=== PATIENT | female | born 1965 | race Caucasian/White ===

== ENCOUNTER 2020-09-01 13:27 | Inpatient (IN) | payer BC ==
[~2020-09-01] VITALS: Ht 157.5 cm; Wt 90.1 kg
--- NOTE | 2020-09-01 13:39 | PHYS DOC ---
General Adult EDM: Chief Complaint: NAUSEA/VOMITING/DIARRHEA HPI: HPI: Patient is a 55-year-old female coming in via EMS for vomiting and diarrhea starting at 13 hours prior to arrival. Patient had pork steaks made by her at home around 2100 yesterday, started vomiting around midnight. Vomiting is nonbloody or bilious but she is unable to say how a time she has vomited. Eventually started having diarrhea as well. Denies any blood or melena. She states she has not been to keep anything down. Denies any sick contacts other than who ate the same meal, fevers, cough. Review of Systems: Review of Systems: All other systems within normal limits except for as noted in the HPI Physical Exam: PE: Constitutional: Well developed, well nourished, mild acute distress, non-toxic appearance. [] HENT: Normocephalic, atraumatic, bilateral external ears normal, nose normal. [] Eyes: PERRLA, conjunctiva normal, no discharge. [] Neck: No rigidity, supple, no stridor. [] Cardiovascular: Regular rate and rhythm, cap refill 1 to 2 seconds [] Lungs & Thorax: Non labored symmetric respirations, no tachypnea or respiratory distress [] Abdomen: Soft, nondistended, left lower extremity tenderness with guarding, no rebound.. Skin: Warm, dry, no erythema, no rash. [] Back: Unremarkable Extremities: No deformities, range of motion grossly intact, no lower extremity edema [] Neurologic: Alert and oriented X 3, no focal deficits noted. [] Psychologic: Affect normal, judgement normal, mood normal. [] EKG: EKG: [] Radiology/Procedures: Radiology/Procedures: [] Heart Score: C/O Chest Pain: No Risk Factors: Risk Factors: DM, Current or recent (<one month) smoker, HTN, HLP, family history of CAD, obesity. Risk Scores: Score 0 - 3: 2.5% MACE over next 6 weeks - Discharge Home Score 4 - 6: 20.3% MACE over next 6 weeks - Admit for Clinical Observation Score 7 - 10: 72.7% MACE over next 6 weeks - Early Invasive Strategies Course & Med Decision Making: Course & Med Decision Making Pertinent Labs and Imaging studies reviewed. (See chart for details) Patient's vital signs normalized after 3 L. Labs suggestive of significant dehydration. Patient still feels weak and is only able to tolerate small amounts of p.o. Will admit for continued hydration and advancing diet as patient will likely bounce back to the emergency department if sent home at this time. [] Dragon Disclaimer: Dragon Disclaimer: This electronic medical record was generated, in whole or in part, using a voice recognition dictation system. Departure Departure: Impression: Primary Impression: ESAU (acute kidney injury) Additional Impressions: Nausea vomiting and diarrhea Dehydration Enteritis Disposition: ADMITTED INPATIENT Admitting Physician: Guerrero Faulkner Condition: STABLE TRIP JONES MD Sep 01, 2020 13:39
[2020-09-01] MEDS ORDERED: IV NORMAL SALINE 1,000ML 1,000 ML IV ONE ×2 (13:45→15:00)
[2020-09-01] MEDS ORDERED: ONDANSETRON PF 4 MG/2 ML VIAL. IVP ONE (13:45)
[2020-09-01] MEDS ORDERED: IOHEXOL 300 MG/ML 75 ML VIAL. IV ONE (13:45)
--- NOTE | 2020-09-01 14:24 | RAD ---
EXAM: CT Abdomen and Pelvis without IV contrast CLINICAL HISTORY: LLQ pain COMPARISON: CT 05/10/2016 TECHNIQUE: Helical CT of the abdomen and pelvis without intravenous contrast. Axial, coronal and sagi ttal reformatted images were generated. PQRS compliance statement - One or more of the following individualized dose reduction techniques wer e utilized for this study: 1. Automated exposure control 2. Adjustment of the mA and/or kV according to patient size 3. Use of iterative reconstruction technique FINDINGS: Lack of intravenous contrast limits evaluation of solid organs, vasculature, and lymph nodes. Lower chest: Linear opacities lower lobes and lingula likely scarring/atelectasis. Abdomen and Pelvis: Spleen and adrenal glands are unremarkable. Accounting for postcholecystectomy change, no biliary stormy gabriella dilatation. Pancreas is grossly unremarkable. No focal renal lesion. No hydronephrosis. No hydrou reter. Liver is enlarged measuring 19.7 cm in length. Mild colonic stool content. Focal dilation or diverticulum arising from the sigmoid colon measures 5 .6 cm. An adjacent small bowel loop measures 3.1 cm in diameter with trace infiltration, with smooth transition proximal and distal to normal caliber. Changes of partial gastrectomy are seen. No abdominal or pelvic ascites. No abdominal or pelvic lymphadenopathy. Small fat-containing periumbilical hernia. The IVC is mostly collapsed, may be seen with dehydration. Aorta is normal in caliber. Bones: Symphysis pubis degenerative changes are seen. No aggressive osseous lesion is seen. Degenerative qamar nges of the spine. IMPRESSION: 1. Borderline dilation of a short segment of small bowel in the left lower quadrant with trace infil tration likely enteritis. No definite bowel obstruction. 2. Focal diverticulum or anastomotic surgical pouch arising from the sigmoid colon measures 5.6 cm, chronic in appearance, mildly more prominent compared to 1 5 sent. 3. Mild colonic stool content. 4. Hepatomegaly. Electronically signed by: Min Valladares MD (09/01/2020 2:21 PM) [facility]
[2020-09-01 16:04] LABS: BASO % 0 % (0-3); EOS # 0.1 x10^3/uL (0.0-0.7); EOS % 1 % (0-3); HEMATOCRIT 42.3 % (36.0-47.0); LYMPH # 0.5 x10^3/uL (1.0-4.8); LYMPH % 7 % (24-48); MEAN CORPUSCULAR HEMOGLOBIN 30 pg (25-35); MEAN CORPUSCULAR HGB CONC 33 g/dL (31-37); MEAN CORPUSCULAR VOLUME 92 fL (79-100); MONO # 0.1 x10^3/uL (0.0-1.1); MONO % 1 % (0-9); NEUT # 6.9 x10^3uL (1.8-7.7); NEUT % 91 % (31-73); PLATELET COUNT 171 x10^3/uL (140-400); RED BLOOD COUNT 4.61 x10^6/uL (3.50-5.40); RED CELL DISTRIBUTION WIDTH 14.9 % (11.5-14.5); WHITE BLOOD COUNT 7.6 x10^3/uL (4.0-11.0)
[2020-09-01 16:07] LABS: CALCIUM 7.4 mg/dL (8.5-10.1); CREATININE 1.6 mg/dL (0.6-1.0); GFR 33.5; POTASSIUM 3.6 mmol/L (3.5-5.1)
[2020-09-01 16:13] LABS: ALBUMIN 2.6 g/dL (3.4-5.0); TOTAL BILIRUBIN 1.4 mg/dL (0.2-1.0); TOTAL PROTEIN 5.3 g/dL (6.4-8.2)
[2020-09-01] MEDS ORDERED: ONDANSETRON PF 4 MG/2 ML VIAL. IVP PRN (17:15)
[2020-09-01 20:23] VITALS: BP 102/71
[2020-09-01] MEDS: IV NORMAL SALINE 1,000ML 1,000 ML IV SCH (21:27)
[2020-09-02 00:38] VITALS: BP 114/76
[2020-09-02 05:44] VITALS: BP 90/67
[2020-09-02 06:30] LABS: BASO % 1 % (0-3); EOS % 1 % (0-3); HEMATOCRIT 41.2 % (36.0-47.0); HEMOGLOBIN 13.7 g/dL (12.0-15.5); LYMPH # 0.4 x10^3/uL (1.0-4.8); LYMPH % 9 % (24-48); MEAN CORPUSCULAR HEMOGLOBIN 31 pg (25-35); MEAN CORPUSCULAR HGB CONC 33 g/dL (31-37); MEAN CORPUSCULAR VOLUME 92 fL (79-100); MONO # 0.1 x10^3/uL (0.0-1.1); MONO % 2 % (0-9); NEUT # 4.1 x10^3uL (1.8-7.7); NEUT % 88 % (31-73); PLATELET COUNT 155 x10^3/uL (140-400); RED BLOOD COUNT 4.47 x10^6/uL (3.50-5.40); RED CELL DISTRIBUTION WIDTH 14.9 % (11.5-14.5); WHITE BLOOD COUNT 4.7 x10^3/uL (4.0-11.0)
[2020-09-02 06:34] LABS: CALCIUM 7.8 mg/dL (8.5-10.1); GFR 57.6; POTASSIUM 3.3 mmol/L (3.5-5.1)
[2020-09-02] MEDS: IV NORMAL SALINE 1,000ML 1,000 ML IV SCH (07:49)
[2020-09-02 08:19] VITALS: BP 117/76
[2020-09-02 10:46] VITALS: BP 119/81
[2020-09-02 12:38] VITALS: BP 109/73
--- NOTE | 2020-09-02 12:42 | HP ---
ADMIT DATE: 09/01/2020 ATTENDING PHYSICIAN: Dr. Faulkner. CHIEF COMPLAINT: Nausea, vomiting, diarrhea. HISTORY OF PRESENT ILLNESS: The patient is a pleasant 55-year-old female admitted to the ED with a 1-day history of nausea, vomiting, and diarrhea, very tired. She is weak. She has been taking care of a 1-year-old grandson who also has symptoms. The grandson caught a virus from his daycare. Both she and her is ill, has improved. There is no COVID exposure. She is on blood pressure medication. She was very weak and tired and clinically dehydrated. She is admitted for further treatment and evaluation. PAST MEDICAL HISTORY: Significant for gastric bypass surgery, fibromyalgia, and essential hypertension. CURRENT MEDICATIONS: Include amlodipine, lisinopril, Cymbalta and Lyrica. ALLERGIES: She has no recorded drug allergies. SOCIAL HISTORY: She is a nonsmoker, nondrinker. She is currently unemployed. She has been active, taking care of a 1-year-old grandson. No recent travel exposure, fevers. REVIEW OF SYSTEMS: All other systems reviewed and turned to be negative. PHYSICAL EXAMINATION: GENERAL: When I saw her, this is a pleasant, middle-aged female. VITAL SIGNS: Showed a blood pressure in the ED of 90/67, temperature 100.7 degrees Fahrenheit, oxygen saturation 94% on room air, pulse is 76 and normal. HEENT: Head is without trauma. Pupils are reactive. Sclerae nonicteric. Oropharynx a bit dry. NECK: Supple. No stridor. LUNGS: Clear. CARDIOVASCULAR: Regular heart tones. No gallop. ABDOMEN: Soft. EXTREMITIES: Without edema. NEUROLOGIC: Focally intact. Speech is fluent. LABORATORIES AND X-RAY STUDIES: CT of the abdomen showed postoperative changes. She has had a previous colon resection with anastomosis, diverticulum without diverticulitis. No obstruction identified. Her hemoglobin is 14.0 grams. White count 7600. Electrolytes, creatinine is 1.6 mg/dL, BUN 51. Electrolytes within normal range. Transaminases are normal. ASSESSMENT: 1. A 55-year-old female with self-limiting viral gastroenteritis. 2. Dehydration. 3. Mild acute renal failure with elevation of BUN and creatinine due to fluid losses. 4. Fibromyalgia. 5. Previous colon resection with any obstruction at this time. 6. Essential hypertension, now hypotensive. PLAN: 1. Observation status. 2. Gentle IV hydration. 3. Symptomatic relief. 4. Nausea control. 5. Follow up chemistries in the morning. 6. Hold antihypertensives. RANDY/JEFFERY DR: Katie TID: [id number] CC: Hallie Patton
--- NOTE | 2020-09-02 20:30 | DS ---
DATE OF DISCHARGE: 09/02/2020 ATTENDING PHYSICIAN: Dr. Faulkner. FINAL DISCHARGE DIAGNOSES: 1. Self-limiting viral gastroenteritis. 2. Dehydration, rehydrated. 3. Essential hypertension, now normotensive. 4. Mild acute renal failure, resolved with hydration. 5. History of fibromyalgia. 6. Previous colon resection. 7. Previous gastric bypass. HISTORY OF PRESENT ILLNESS: The patient is a very pleasant 55-year-old female who got sick along with her . She caught a virus from her 1-year-old grandson they care for at home. He had caught it from daycare. She had nausea, vomiting, diarrhea before coming in. PHYSICAL EXAMINATION: Please see the dictated note. PERTINENT LABORATORY AND X-RAY STUDIES: Creatinine on admission was 1.6 mg/dL, BUN 52. With gentle IV hydration, it came back to normal at 1.0 and 32 mg/dL respectively. CT of the abdomen showed no specific pathology. Postoperative changes of the colo, identified. No obstruction, no inflammatory bowel disease. COURSE IN THE HOSPITAL: The patient was admitted. She was started on gentle IV hydration. Appetite was still poor. She was able to eat some crackers and nausea resolved. Diarrhea, resolved. I offered to keep her another day for hydration. She wanted to go home. I felt this is reasonable. I wrote her a script for Zofran 4 mg p.o. every 6 hours p.r.n. nausea. For now, I have asked her to hold her lisinopril and amlodipine. She should continue her Cymbalta and Lyrica doses unchanged. She is going to record her daily BP readings for several weeks before taking it to see Dr. Patton to decide whether she needs continued antihypertensive therapy. I encouraged a bland diet and oral Gatorade for the next 48 hours. The patient was then discharged from our hospital in stable condition with explicit instructions and followup care. ZOE DR: Katie TID: [id number] CC: Dr. Hallie Patton
== END 2020-09-02 12:45 | disposition home or self-care (01) | DRG 392 ==
LOC: ER 13:27 → 1 SOUTH 17:11
PROVIDERS: ADMIT Hospitalist; ATTEND Hospitalist
DX: A08.4 Viral intestinal infection, unspecified (principal); N17.9 Acute kidney failure, unspecified; E86.0 Dehydration; I10 Essential (primary) hypertension; M79.7 Fibromyalgia; Z56.0 Unemployment, unspecified; Z90.49 Acquired absence of other specified parts of digestive tract; Z98.84 Bariatric surgery status
CPT/HCPCS: 36415; 74176; 80048; 80053; 83605; 83690; 85025; 96361; 96374; 96375; J2405; J3010; 99285-25; J7030

== ENCOUNTER → 2021-07-03 | Outpatient (CLI) | payer BC ==
[2020-11-08 11:34] VITALS: BP 113/73
[~2021-07-03] MED LIST: AMLO-187 PO; BUPR150T21 PO; CHLO25TA9 PO; DULO60CA7 PO; LEVO125T77 PO; LISI40TA6 PO; NALT50TA PO; PREG75CA PO; TIZA-75 PO
--- NOTE | 2021-07-03 11:02 | RAD ---
Examination: Ultrasound abdomen complete HISTORY: History of elevated liver enzymes COMPARISON: None available FINDINGS: The liver length is 13.7 cm. Mild increased echogenicity identified in the liver likely hepatic steat osis. The common bile duct measures 5.6 mm in transverse dimension. Changes of cholecystectomy change s. The pancreas, IVC, aorta are not well-visualized due to bowel gas. The right kidney measures 9.8 x 4.5 x 4.0 cm. IMPRESSION: 1. Mild hepatic steatosis. 2. Changes of cholecystectomy. Electronically signed by: Cabrera Casillas MD (07/03/2021 10:59 AM) [id number]
== END ==
LOC: US 10:07
PROVIDERS: ATTEND Family Medicine
DX: K76.0 Fatty (change of) liver, not elsewhere classified (principal); R60.9 Edema, unspecified; Z90.49 Acquired absence of other specified parts of digestive tract; Z86.16 Personal history of COVID-19
CPT/HCPCS: 76705

== ENCOUNTER → 2021-08-23 | Outpatient (CLI) | payer BC ==
[2020-11-08 11:34] VITALS: BP 113/73
--- NOTE | 2021-08-23 10:13 | RAD ---
Bilateral lower extremity venous real time grayscale, color and spectral duplex ultrasound was perfor med. History: Reason: LOWER EXT EDEMA / Spl. Instructions: / History: Comparison: None. Findings: The common femoral, femoral and popliteal veins demonstrate anechoic lumina, full compressibility, an d cephalad color doppler flow. The bilateral posterior tibial veins are unremarkable. Peroneal veins difficult to visualize. There is subcutaneous edema below the knees bilaterally. Impression: No evidence of DVT in either lower extremity. Peroneal veins not well visualized due to edema below t he knees bilaterally. Electronically signed by: Massimo Alvarado MD (08/23/2021 10:10 AM) [id number]
== END ==
LOC: US 09:09
PROVIDERS: ATTEND Internal Medicine
DX: R60.0 Localized edema (principal)
CPT/HCPCS: 93970